=== PATIENT | male | born 1985 | race Caucasian/White ===

== ENCOUNTER 2024-12-18 14:46 | Outpatient (AMB) | payer OTHER, SELFPAY ==
--- NOTE | 2024-12-18 14:57 | MHC.PC.OV ---
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 Dx: I10. Daily As directed, 999 days/lifetime hydrochlorothiazide 25 mg PO QAM 90 days Tobacco use date assessed: 12/18/24 Dental Screening Dental Screen Date: 12/18/24 Did you have a dental visit in the last 12 months?: Yes Did you have a dental problem in the last 6 months where you did not have access to dental care?: No Was dental information given to patient?: Patient has dentist HPI SENIOR BUYER PLANNER requesting PE HPI Details New Patient? ?? Prior PCP:Fiona Butcher Last office visit/CPE:? 2017 Acute issue(s):? L groin pain after straining with snow removal Lump at area of prior incision for vasectomy. PMHx:? Kidney stones 2011. Childhood asthma. SurgHx:?Vascectomy, FHx:? Mom: HTN, Metastatic Lung Ca. mGF: Bladder Ca. Dad: EtOH. SocHx: Nonskoker, EtOH: Occassional 1-2 dr. [facility] Drugs \ HPI Comments History of Present Illness Details Documentation assistance for Kunal Garza MD, was provided by Rick Orozco,? Copper Plate Printer on at 3:21 PM EST. I, Dr. Garza, have read, observed, and verified documentation. ?? PFSH Surgical History (Updated 12/18/24 @ 15:14 by Val Sharp CMA) H/O vasectomy (2017) Family History (Updated 12/18/24 @ 15:14 by Val Sharp CMA) Mother Lung cancer Hypertension Maternal Grandfather Bladder cancer Maternal Grandmother Hypertension Maternal Uncle Mental health disorder Social History Household Members: Spouse Housing: House Alcohol intake: current Alcohol intake frequency: holidays/special occasions only Patient Tobacco Use Status: Never used Tobacco e-Cigarette/Vaping Use: Never Used service: No Current occupational status: employed Current occupation: Chief Executive Cognitive needs: No Hearing needs: No Vision needs: Yes Questionnaire PHQ-9 Over the last 2 weeks, how often have you been bothered by any of the following problems? 1. Little interest or pleasure in doing things: not at all 2. Feeling down, depressed, or hopeless: not at all 3. Trouble falling or staying asleep, or sleeping too much: not at all 4. Feeling tired or having little energy: not at all 5. Poor appetite or overeating: not at all 6. Feeling bad about yourself - or that you are a failure or have let yourself or your family down: not at all 7. Trouble concentrating on things, such as reading the newspaper or watching television: not at all 8. Moving or speaking so slowly that other people could have noticed. Or the opposite - being so fidgety or restless that you have been moving around a lot more than usual: not at all 9. Thoughts that you would be better off or of hurting yourself in some way: not at all Total score: 0 Depression Screening Interpretation: Negative Depression Screening Done: Yes 04621 - PHQ-9 Billing: Yes Source: Developed by Drs. Kiran Pappas, Genevieve Machado, Antonio Adair and colleagues, with an educational ramesh from [employer]. Thrive Questionnaire Date Thrive assessed: 12/18/24 I am a: Patient What is your living situation today?: I have a steady place to live Within the past 12 months, did the food you bought not last and you didn't have the money to get more?: Never true Within the past 12 months, did you worry whether your food would run out before you got money to buy more?: Never true Do you have trouble paying for medicines?: No Do you have trouble getting transportation to medical appointments?: No Do you have trouble paying your heating and electricity bill?: No Do you have trouble taking care of your child, family member or friend?: No Do you have trouble with day-to-day activities such as bathing, preparing meals, shopping, managing finances, etc.?: No Are you currently unemployed and looking for a job?: No Are you interested in more education?: No Please select the resources that you would like help with: None Currently or been in a relationship where the following occur: No concerns reported THRIVE Score: 0 AUDIT C Alcohol Use Questionnaire (AUDIT-C) 1. How often do you have a drink containing alcohol?: Monthly or less 2. How many drinks containing alcohol do you have on a typical day when you are drinking?: 1 or 2 3. How often do you have six or more drinks on one occasion?: Never Total Score: 1 BATOOL-7 AMB Questionnaire BATOOL-7 Date BATOOL - 7 assessed: 12/18/24 Feeling nervous, anxious, or on edge: 0 = Not at all Not being able to stop or control worryin = Not at all Worrying too much about different things: 0 = Not at all Trouble relaxin = Not at all Being so restless that it is hard to sit still: 0 = Not at all Becoming easily annoyed or irritable: 0 = Not at all Feeling afraid as if something awful might happen: 0 = Not at all Total BATOOL-7 score (0-4 normal; 5-9 mild; 10-14 moderate; 15-21 severe): 0 Source: Developed by Drs. Kiran Pappas, Genevieve Machado, Antonoi Adair and colleagues, with an educational ramesh from [employer]. BATOOL-7 Assessment Billing BATOOL-7 Assessment Tool: BATOOL-7 Assessment 62323 Review of Systems Const Denies chills, Denies fatigue, Denies fever(s), Denies headache(s) and Denies weakness Eyes Denies change in vision ENT Denies dizziness and Denies headache(s) Card Denies chest pain, Denies lightheadedness, Denies dyspnea and Denies other (Palpitations) Resp Denies cough, Denies dyspnea, Denies wheezing and Denies other ( shortness of breath) GI Denies abdominal pain, Denies melena, Denies hematochezia, Denies change in bowel habits, Denies dyspepsia and Denies nausea Denies hematuria and Denies dysuria Musc Denies numbness and Denies tingling Skin/Breast Denies rash, Denies unusual bruising and Denies wounds Neuro Denies dizziness, Denies headache(s), Denies numbness, Denies Sensory deficit (Neuro), Denies tingling, Denies paresthesias and Denies weakness Psych Denies anxiety and Denies depression Endo Denies fatigue Antione/Lymph Denies easy bleeding and Denies easy bruising Aller/Immun Denies wheezing Physical exam (Primary Care) Vital Signs: Last Vital Signs Pulse 107 H 12/18/24 15:01 BP 128/98 H 12/18/24 15:01 Pulse Ox 96 12/18/24 15:01 Oxygen Delivery Method Room Air 12/18/24 15:01 BMI result Body Mass Index 37.6 Tobacco/Smoking Status: Tobacco use Status Tobacco use date assessed 12/18/24 12/18/24 15:15 Patient Tobacco Use Status Never used Tobacco 12/18/24 15:15 e-Cigarette/Vaping Use Never Used 12/18/24 15:15 PHQ-9: PHQ-9 Score PHQ-9: Total score 0 12/18/24 15:15 Depression Screening Interpretation: Negative Thrive Assessment: Date of Thrive Assessment Date Thrive assessed 12/18/24 12/18/24 15:15 Currently or been in a relationship where the following occur: No concerns reported Const General: no acute distress and well developed Nutritional Appearance: well nourished Orientation/consciousness: patient oriented x3 HENMT Head: Yes normocephalic and Yes atraumatic Ears: hearing grossly normal bilaterally and TM's normal bilaterally General nose exam: Normal external nose present and Normal nares present Mouth: Normal oral and palatal mucosa present and moist mucous membranes Teeth and gingiva: dentition normal Throat: Yes posterior oropharynx normal Eyes General: appearance normal, both eyes and all related structures Pupils: Equal, round and reactive pupils present EOM: EOMs intact bilaterally Neck Neck: Yes normal visual inspection, Yes no lymphadenopathy and Yes trachea midline Thyroid: Thyroid normal Carotids: no bruits Lymphatic: no lymphadenopathy noted Chest Chest palpation & inspection: normal inspection of the chest Resp Effort & Inspection: normal respiratory effort Auscultation: clear to auscultation bilaterally Cardio Rate: regular rate Rhythm: regular rhythm Heart sounds: S1 normal heart sound present, S2 normal heart sound present, no gallops, no murmurs and no rubs Bruits: no abdominal aortic bruits and no carotid bruits GI Palpation (GI): No Abdominal aortic bruit present, Soft to palpation, nontender, No hepatosplenomegaly present and No Rebound tenderness present Auscultation: normal bowel sounds General: Yes no CVA tenderness Back/Spine/Pelvis Back: no CVA tenderness Cervical Spine: cervical ROM normal and No Cervical spine tenderness Thoracic/Lumbar Spine: thoraco-lumbar ROM normal, No pain with thoraco-lumbar ROM, No thoracic spinal tenderness and No lumbar spinal tenderness Skin Lesions: no lesions Rashes: no rashes Trauma: no lacerations or abrasions Wounds: no wounds Nails: normal Neuro General: patient oriented x3 and gait normal Cranial nerves: Yes Equal, round and reactive pupils present Cognition (Neuro): normal cognition Gait exam (Neuro): Normal gait present Motor exam (neuro): 5/5 motor strength present throughout Sensory Exam: No Sensory deficit (Neuro) Deep tendon reflexes (DTR's): Right patellar reflex intensity grade: 2+ and Left patellar reflex intensity grade: 2+ Extrem General: Yes normal to inspection and No edema Psych Appearance: grossly normal Affect: normal affect Attitude: cooperative Thought process: Normal thought process present Coding Level of Care Code New Pt Level 3 (93802) New Pt Prev Care 40-64y(25888) Diagnoses Adult general medical exam Z00.00 Elevated blood pressure reading R03.0 Left groin pain R10.32 History of kidney stones Z87.442 Screening for prostate cancer Z12.5 Testicular lump N50.89 Hypertension I10 Left lower quadrant pain R10.32 Additional Codes BATOOL-7 Assessment Billing - BATOOL-7 Assessment Tool: BATOOL-7 Assessment 67952 ([id number]) PHQ-9 - 41094 - PHQ-9 Billing: Yes ([id number]) Assessment & Plan Assessment & Plan (1) Adult general medical exam: Code(s): Z00.00 - Encounter for general adult medical examination without abnormal findings Category: Medical Plan: 39-year-old male presents as new patient for complete physical exam Encouraged healthy diet with active lifestyle exercise (2) Elevated blood pressure reading: Code(s): R03.0 - Elevated blood-pressure reading, without diagnosis of hypertension Category: Medical (3) Left groin pain: Onset Date: ~12/18/24 Code(s): R10.32 - Left lower quadrant pain Category: Medical Plan: Left lower abdominal pain and left groin in screw pain He does have a lump at the back left testis. No impulse and groin lower abdomen w/ valsalva Will check ultrasound (4) History of kidney stones: Code(s): Z87.442 - Personal history of urinary calculi Category: Medical Plan: Hydrate well (5) Screening for prostate cancer: Code(s): Z12.5 - Encounter for screening for malignant neoplasm of prostate Category: Medical Plan: Check PSA (6) Testicular lump: Code(s): N50.89 - Other specified disorders of the male genital organs Category: Medical Plan: Check U/S (7) Hypertension: Code(s): I10 - Essential (primary) hypertension Category: Medical Plan: Blood pressure is too high. Goal is less than 140/90 Gave him blood pressure monitor Starting hydrochlorothiazide (8) Left lower quadrant pain: Code(s): R10.32 - Left lower quadrant pain Category: Medical Plan Patient has left lower quadrant pain, groin pain and a left testicular lump. Will get ultrasound and follow-up with patient Orders: Orders Comprehensive [place]. Panel Fast Today Z00.00 - Encounter for general adult medical examination without abnormal findings Complete Blood Count Auto Diff Today Z00.00 - Encounter for general adult medical examination without abnormal findings UA CC w/rflx Micro + Cult Today Z00.00 - Encounter for general adult medical examination without abnormal findings Lipid Panel Today Z00.00 - Encounter for general adult medical examination without abnormal findings Microalbumin, Random (w Creat) Today I10 - Essential (primary) hypertension TSH reflex Free T4 Today Z00.00 - Encounter for general adult medical examination without abnormal findings Prostate Specific Antigen Scr Today Z12.5 - Encounter for screening for malignant neoplasm of prostate US scrotum Today N50.89 - Other specified disorders of the male genital organs US pelvic complete Today R10.32 - Left lower quadrant pain Medications: New hydrochlorothiazide 25 mg PO QAM 90 tabs 3RF 90 days blood pressure monitor Automatic, Digital. Dx: I10. Daily As directed, 999 days/lifetime 1 ea 0RF I10 - Essential (primary) hypertension
[2024-12-18 15:01] VITALS: BP 128/98; PULSE 107; O2SAT 96; BMI 37.6
[2024-12-18 15:40] VITALS: BP 140/106
== END 2024-12-18 15:47 | disposition home or self-care (01) ==
LOC: HO.HMCFM 14:47
PROVIDERS: PCP Family Medicine; Visit Provider Family Medicine
DX: Z00.00 Encounter for general adult medical examination without abnormal findings (principal); R03.0 Elevated blood-pressure reading, without diagnosis of hypertension; R10.32 Left lower quadrant pain; Z87.442 Personal history of urinary calculi; Z12.5 Encounter for screening for malignant neoplasm of prostate; N50.89 Other specified disorders of the male genital organs; I10 Essential (primary) hypertension

== ENCOUNTER → 2024-12-18 14:46 | Outpatient (BNVA) | payer OTHER, SELFPAY | PROVIDERS: PCP Family Medicine; Visit Provider Family Medicine | DX: Z00.00 Encounter for general adult medical examination without abnormal findings (principal); R10.32 Left lower quadrant pain; R03.0 Elevated blood-pressure reading, without diagnosis of hypertension; I10 Essential (primary) hypertension; N50.89 Other specified disorders of the male genital organs; Z87.442 Personal history of urinary calculi | CPT/HCPCS: 96127; 99202; 99386 ==

== ENCOUNTER 2024-12-21 08:29 | Outpatient (REF) | payer OTHER, SELFPAY ==
[2024-12-21 11:38] LABS: MANUAL DIFF FLAG NO
[2024-12-21 11:42] LABS: Hematocrit 46.2 % (42.0-52.0); Hemoglobin 15.8 g/dl (14.0-18.0); Imm Gran Abs Auto 0.05 X10*3/uL (0.00-0.03); Imm Gran Pct Auto 0.7 % (0.0-0.4); Lymphocytes Absolute Auto 1.8 X10*3/uL (1.2-4.9); Mean Corpuscular HGB Conc 34.2 g/dl (31.0-36.0); Mean Corpuscular Hemoglobin 32.0 pg (27.0-33.0); Mean Corpuscular Volume 93.5 fL (80.0-98.0); NRBC Abs Auto 0.000 X10*3/uL (0.0-0.012); NRBC Pct Auto 0.0 /100WBC (0.0-0.2); Platelet Count 212 X10*3/uL (160-400); Red Blood Count 4.94 X10*6/uL (4.60-5.80); White Blood Count 6.8 X10*3/uL (4.8-10.8)
[2024-12-21 12:02] LABS: Alanine Aminotransferase 38 U/L (0-40); Albumin Level 4.8 g/dL (3.5-5.0); Alkaline Phosphatase 45 U/L (39-117); Anion Gap 12 (12-20); Aspartate Amino Transferase 32 U/L (5-37); Blood Urea Nitrogen 12 mg/dL (9-16); Calcium 9.2 mg/dL (8.4-10.2); Carbon Dioxide 29 mmol/L (22-29); Chloride 102 mmol/L (96-108); Cholesterol 172 mg/dL (<200); Estimated Glomerular Filt Rate > 60; HDL Cholesterol 44 mg/dL (>40); Potassium 4.3 mmol/L (3.3-5.1); Sodium 139 mmol/L (135-145); Total Protein 7.1 g/dL (6.5-8.0); Triglycerides 86 mg/dL (<150)
[2024-12-21 12:10] LABS: Appearance Urine Clear; Glucose Urine UA Negative (Negative); PH 7.0 (5.0-9.0); Specific Gravity - Urine <= 1.005 (1.005-1.025)
== END 2024-12-21 08:30 | disposition home or self-care (01) ==
LOC: HO.WFDLDS 08:29
PROVIDERS: Visit Provider Family Medicine
DX: Z00.00 Encounter for general adult medical examination without abnormal findings (principal); Z12.5 Encounter for screening for malignant neoplasm of prostate; I10 Essential (primary) hypertension
CPT/HCPCS: 36415; 80053; 80061; 81003; 82570; 84153; 84443; 85025

== ENCOUNTER 2025-02-15 13:50 | Outpatient (REF) | payer OTHER, SELFPAY ==
--- NOTE | ~2025-02-15 | US_ITS ---
EXAMINATION: US SCROTUM CLINICAL INFORMATION: R10.32. Testicular pain, left side. Posterior scrotal lump, left side... COMPARISON: None available. TECHNIQUE: A sonogram of the scrotum was performed assessing block-scale appearance and color Doppler flow. Spectral Doppler analysis of the arterial and venous flow were performed in the testes bilaterally. FINDINGS: RIGHT: Right testicle measures 5.5 x 2.5 x 3.3 cm, volume 24 mL. No solid or cystic lesion. Normal echotexture. Spectral Doppler analysis of the arterial and venous flow is normal in the right testis. Right epididymal head is normal. There are 2 less than 8 mm cysts. No free fluid in the scrotal sac. No prominence of the pampiniform plexus during Valsalva maneuvers.. Right epididymal Doppler flow is normal. LEFT: Left testicle measures 5.1 x 2.5 x 3.6 cm, volume 24 6) mL. No solid or cystic lesion. Normal echotexture. Spectral Doppler analysis of the arterial and venous flow is normal in the left testis. Left epididymal head is normal with 3 mm cyst . Prominent tortuous/enlarged pampiniform plexus with a focal 1.8 cm heterogeneous mixed echotexture predominantly hypoechoic abnormality without flow on color Doppler interrogation. No free fluid in the scrotal sac. Left epididymal Doppler flow is normal. US/US scrotum IMPRESSION: Varicocele, left-sided with a focal 1.8 cm abnormality suggesting a thrombosed segment and less likely thrombosed aneurysm. No testicular torsion. No testicular mass. No hydrocele. Electronically signed by: Kosta Becerra MD 02/15/2025 03:24 PM [facility]
== END 2025-02-15 13:51 | disposition home or self-care (01) ==
LOC: HO.HMGCX 13:50
PROVIDERS: PCP Family Medicine; Visit Provider Family Medicine
DX: N50.89 Other specified disorders of the male genital organs (principal); R10.32 Left lower quadrant pain
CPT/HCPCS: 76870

== ENCOUNTER → 2025-02-15 14:00 | Outpatient (BNV) | payer OTHER, SELFPAY | PROVIDERS: PCP Family Medicine; Visit Provider Radiology Diagnostic Radiology | DX: I86.1 Scrotal varices (principal) | CPT/HCPCS: 76870 ==

== ENCOUNTER 2025-03-08 10:50 | Outpatient (AMB) | payer OTHER, SELFPAY ==
--- NOTE | 2025-03-08 10:56 | MHC.OFFVIS ---
Intake Visit Reasons: Varicocele possible thrombosed segment (set)UA) Intake Note: New patient presents today for initial visit for varicocele possible thrombosed segment Urology Medication:None Blood Thinner:None Antibiotic Allergies:None Allergies No Known Allergies Allergy (Verified 03/08/25 10:57) Medication List - Last Reconciled 03/08/25 by Tera Millan MD blood pressure monitor Automatic, Digital. Dx: I10. Daily As directed, 999 days/lifetime hydrochlorothiazide 25 mg PO QAM 90 days meloxicam 15 mg PO DAILY PFSH Surgical History H/O vasectomy (2018) Family History Mother Lung cancer Hypertension Maternal Grandfather Bladder cancer Maternal Grandmother Hypertension Maternal Uncle Mental health disorder Social History Household Members: Spouse Housing: House Alcohol intake: current Alcohol intake frequency: holidays/special occasions only Patient Tobacco Use Status: Never used Tobacco e-Cigarette/Vaping Use: Never Used service: No Current occupational status: employed Current occupation: [employer] Supervisor Cognitive needs: No Hearing needs: No Vision needs: Yes Results AMB Urinalysis, Automated UA Leukoctes 0 Leatha/uL Last Edit by Anupama Monroy on 03/08/25 15:32 UA Nitrite Negative Last Edit by Anupama Monroy on 03/08/25 15:32 UA Urobilinogen 0.2 mg/dL Last Edit by Anupama Monroy on 03/08/25 15:32 UA Protein 0 mg/dL Last Edit by Anupama Monroy on 03/08/25 15:32 UA pH 6.5 Last Edit by Anupama Monroy on 03/08/25 15:32 UA Blood 0 Girish/uL Last Edit by Anupama Monroy on 03/08/25 15:32 UA Specific [place] 1.015 Last Edit by Anupama Monroy on 03/08/25 15:32 UA Ketone Negative Last Edit by Anupama Monroy on 03/08/25 15:32 UA Bilirubin 0 mg/dL Last Edit by Anupama Monroy on 03/08/25 15:32 UA Glucose 0 mg/dL Last Edit by Anupama Monroy on 03/08/25 15:32 Results Reviewed Results Reviewed: Date of Service: 02/15/25 US SCROTUM CLINICAL INFORMATION: R10.32. Testicular pain, left side. Posterior scrotal lump, left side... COMPARISON: None available. TECHNIQUE: A sonogram of the scrotum was performed assessing block-scale appearance and color Doppler flow. Spectral Doppler analysis of the arterial and venous flow were performed in the testes bilaterally. FINDINGS: RIGHT: Right testicle measures 5.5 x 2.5 x 3.3 cm, volume 24 mL. No solid or cystic lesion. Normal echotexture. Spectral Doppler analysis of the arterial and venous flow is normal in the right testis. Right epididymal head is normal. There are 2 less than 8 mm cysts. No free fluid in the scrotal sac. No prominence of the pampiniform plexus during Valsalva maneuvers.. Right epididymal Doppler flow is normal. LEFT: Left testicle measures 5.1 x 2.5 x 3.6 cm, volume 24 6) mL. No solid or cystic lesion. Normal echotexture. Spectral Doppler analysis of the arterial and venous flow is normal in the left testis. Left epididymal head is normal with 3 mm cyst . Prominent tortuous/enlarged pampiniform plexus with a focal 1.8 cm heterogeneous mixed echotexture predominantly hypoechoic abnormality without flow on color Doppler interrogation. No free fluid in the scrotal sac. Left epididymal Doppler flow is normal. IMPRESSION: Varicocele, left-sided with a focal 1.8 cm abnormality suggesting a thrombosed segment and less likely thrombosed aneurysm. No testicular torsion. No testicular mass. No hydrocele. Assessment & Plan Assessment & Plan Orders: Orders AMB Urinalysis Automated Today I86.1 - Scrotal varices, Z87.442 - Personal history of urinary calculi Medications: New meloxicam 15 mg PO DAILY 21 tabs 0RF Coding
== END 2025-03-08 11:38 | disposition home or self-care (01) ==
LOC: HO.HUSH 10:51
PROVIDERS: PCP Family Medicine; Visit Provider Urology
DX: Z87.442 Personal history of urinary calculi (principal); I86.1 Scrotal varices

== ENCOUNTER → 2025-03-08 10:50 | Outpatient (BNVA) | payer OTHER, SELFPAY | PROVIDERS: PCP Family Medicine; Visit Provider Urology | DX: R10.32 Left lower quadrant pain (principal); I86.1 Scrotal varices; N50.812 Left testicular pain; Z87.442 Personal history of urinary calculi | CPT/HCPCS: 81003 ==